=== PATIENT | male | born 1965 ===

== ENCOUNTER 2019-01-03 07:07 | Inpatient (IN) | payer OTHER ==
[~2019-01-03] VITALS: Ht 165.1 cm; Wt 66.4 kg
[2019-01-03] VITALS (12 sets, daily range): BP systolic 106–138; BP diastolic 45–81
[~2019-01-03 07:07] MED LIST: BYSTOLIC10 MG ORAL; CARBIDOPA-LEVO1 EA15 PO; FISH OIL 500 M1 EAC1 PO; PAXIL10 MG ORAL; VIT B12 PO; VIT D PO; [UNRECOGNIZED DRUG - OTHER] PO; ceFAZolin sod 1 GM in NS 55 ML IVPB ONE
[2019-01-03] MEDS ORDERED: EPINEPHrine 1mg/1ml Amp ONE (07:16)
[2019-01-03] MEDS ORDERED: Thrombin 5000 units TOPIC ONE ×2 (07:16→07:17)
[2019-01-03] MEDS ORDERED: Vancomycin 1gm vial IVPB ONE (07:16)
[2019-01-03] MEDS ORDERED: Gelfoam Size TOPIC ONE (07:16)
[2019-01-03] MEDS ORDERED: Bupivacaine 0.5% Inj 30 ml vial INJ ONE (07:17)
[2019-01-03] MEDS ORDERED: Bacitracin 50000 Units Vial ONE (07:17)
[2019-01-03] MEDS ORDERED: NS Irrig 1000ml IRRIG ONE ×2 (07:36→08:05)
[2019-01-03] MEDS ORDERED: fentaNYL 100 mcg/2 mL IV ONE (07:42)
[2019-01-03] MEDS ORDERED: Midazolam 2mg/2ml Inj ONE (07:42)
[2019-01-03] MEDS ORDERED: Lidocaine 1% MPF 10mg/ml 5ml ONE (07:42)
[2019-01-03] MEDS ORDERED: Rocuronium Bromide 50mg/5ml Inj IV ONE (07:56)
[2019-01-03] MEDS ORDERED: Succinylcholine 20mg/ml 10ml vial ONE (07:56)
[2019-01-03] MEDS ORDERED: Sterile Water Irrig 1000ml IRRIG ONE (08:30)
[2019-01-03] MEDS ORDERED: NS Irrig 1000ml ONE (08:30)
[2019-01-03] MEDS ORDERED: LR 1000ml ONE (08:30)
[2019-01-03] MEDS ORDERED: Propofol 1,000mg/ 100ml btl IV ONE (08:30)
[2019-01-03] MEDS ORDERED: Neostigmine 1mg/ml 10ml Inj ONE (08:30)
[2019-01-03] MEDS ORDERED: ePHEDrine 50mg/ml Inj ONE (08:30)
--- NOTE | 2019-01-03 08:57 | Pre-Procedure Note/Attestation ---
Pre-Procedure Note/Attestation Complete Prior to Procedure Procedure Narrative: L3-5 laminectomy Indications for Procedure Pre-Operative Diagnosis: L3-5 stenosis Attestation I attest that I discussed the nature of the procedure; its benefits; risks and complications; and alternatives (and the risks and benefits of such alternatives ), prior to the procedure, with the patient (or the patient's legal sales development representative). I attest that, if there was a reasonable possibility of needing a blood transfusion, the patient (or the patient's legal sales development representative) was given the [facility] standardized written summary, pursuant to the Frantz Sibley Blood Safety Act ([place] Health and Safety Code # 1645, as amended). I attest that I re-evaluated the patient just prior to the surgery and that there has been no change in the patient's H&P, except as documented below: Tae Brooks MD Jan 03, 2019 08:57
--- NOTE | 2019-01-03 09:32 | Anethesia Preoperative Eval ---
Anesthesia Pre-op PMH/ROS General Date of Evaluation: Jan 03, 2019 Time of Evaluation: 08:10 Anesthesiologist: Martha ASA Score: ASA 2 Mallampati Score Class I : Soft palate, uvula, fauces, pillars visible Class II: Soft palate, uvula, fauces visible Class III: Soft palate, base of uvula visible Class IV: Only hard plate visible Mallampati Classification: Class III Surgeon: Cecilia Diagnosis: Lumbar spinal stenosis Surgical Procedure: Lumbar laminotomy Anesthesia History: difficult airway - Problem intubating for colecystectomy about 10 years ago Family History: no anesthesia problems Allergies: Coded Allergies: No Known Allergies (Unverified , 01/03/19) Patient NPO?: Yes NPO Date: Jan 02, 2019 NPO Time: 2129 Past Medical History Cardiovascular: Reports: HTN - stable on meds; Denies: CAD, CO, valve dz, arrhythmia, other Pulmonary: Denies: asthma, COPD, SHARRI, other Gastrointestinal/Genitourinary: Reports: GERD - mild; Denies: CRI, ESRD, other Neurologic/Psychiatric: Reports: depression/anxiety, other - Parkinsons stable on meds; Denies: dementia, CVA, TIA Endocrine: Denies: DM, hypothyroidism, steroids, other HEENT: Denies: cataract (L), cataract (R), glaucoma, [place] (L), [place] (R), other Hematology/Immune: Denies: anemia, DVT, bleeding disorder, other Musculoskeletal/Integumentary: Denies: OA, RA, DJD, DDD, edema, other PMH Narrative: as above PSxH Narrative: Cholecystectomy Anesthesia Pre-op Phys. Exam Physician Exam Last Vital Signs Date Time Temp Pulse Resp B/P (MAP) Pulse Ox O2 Delivery O2 Flow Rate FiO2 01/03/19 07:54 Room Air 01/03/19 07:41 97.9 48 18 132/76 (94) 100 Constitutional: NAD Neurologic: CN 2-12 intact Cardiovascular: RRR, no M/R/G Respiratory: CTA Gastrointestinal: S/NT/ND Airway Exam Mallampati Score: Class III MO: limited Neck: short TMD: short Teeth: intact Dentures: no upper, no lower Anesthesia Pre-op A/P Labs see chart Studies Pre-op Studies: EKG - NSR Risk Assessment & Plan Assessment: ASA 2 Plan: GA with ETT prone position, neuromonitoring Status Change Before Surgery: No Pre-Antibiotics Drug: Ancef 2gr Given Within 1 Hr of Incision: Yes Time Given: 09:06 Antonio Thomas MD Jan 03, 2019 09:32
[2019-01-03] MEDS ORDERED: LR 1000ml 1,000 ML IVLG SCH (09:33)
[2019-01-03] MEDS ORDERED: Morphine Sulfate 10mg/ml Inj ONE (09:36)
[2019-01-03] MEDS ORDERED: Ketorolac 30mg Inj ONE (09:37)
[2019-01-03] MEDS ORDERED: Sodium Chloride 10ml vial INJ ONE (09:37)
[2019-01-03] MEDS ORDERED: Glycopyrrolate 0.2mg/ml 1ml Vial ONE (09:37)
[2019-01-03] MEDS ORDERED: Hydromorphone 0.5mg/0.5ml inj IVP PRN (09:45)
[2019-01-03] MEDS ORDERED: Ketorolac 30mg Inj IV PRN (09:45)
[2019-01-03] MEDS ORDERED: Acetaminophen (Non formulary) 100 ML IV ONE (09:45)
[2019-01-03] MEDS ORDERED: Meperidine 50mg/ml Inj(FOR RIGORS ONLY) IV PRN (09:45)
[2019-01-03] MEDS ORDERED: DiphenhydrAMINE 50mg/ml Inj IVP PRN (09:45)
[2019-01-03] MEDS ORDERED: Metoclopramide 10mg/2ml Inj IVP PRN ×2 (09:45→11:30)
--- NOTE | 2019-01-03 10:46 | NUR ---
*-* NO INSURANCE INFORMATION IN THE BAR UNABLE TO SEND CLINICALS OR REVIEWS *-*
--- NOTE | 2019-01-03 11:22 | Brief Operative Note ---
Immediate Post Operative Note Operative Note Pre-op Diagnosis: L3-5 stenosis Procedure: L3,4,5 laminectomy Post-op Diagnosis: same as pre-op Findings: consistent w/pre-op dx studies Surgeon: los Immigration Guard: Sarath sanchez Anesthesiologist: yolie Anesthesia: general Specimen: none Complications: none Condition: stable Fluids: 1L Estimated Blood Loss: minimal - 50 Drains: hemovac Implant(s) used?: No Tae Brooks MD Jan 03, 2019 11:22
[2019-01-03] MEDS ORDERED: traMADol 50mg tab ORAL PRN (11:30)
--- NOTE | 2019-01-03 11:49 | Immediate Post-Op Evaluation ---
Immediate Post-Op Evalulation Immediate Post-Op Evalulation Procedure: L3 to L5 laminotomy with decompression Date of Evaluation: Jan 03, 2019 Time of Evaluation: 11:47 IV Fluids: 1400 Blood Products: none Estimated Blood Loss: 50 Urinary Output: 200 Blood Pressure Systolic: 106 Blood Pressure Diastolic: 57 Pulse Rate: 78 Respiratory Rate: 20 O2 Sat by Pulse Oximetry: 99 Temperature (Fahrenheit): 98.7 Pain Score (1-10): 1 Nausea: No Vomiting: No Complications none Patient Status: reacts, patent, none Hydration Status: adequate Antonio Thomas MD Jan 03, 2019 11:49
--- NOTE | 2019-01-03 12:00 | Diagnostic Imaging Report ---
INDICATION: Pain, intraoperative TECHNIQUE: Intraoperative imaging Fluoroscopy time: 4 seconds Total dose: 0.97467 mGym2 Total number of images: One COMPARISON: None FINDINGS: Intraoperative image demonstrates a surgical tool posterior to the superior aspect of what is presumably the L4 vertebral body. IMPRESSION: Intraoperative imaging, as described
--- NOTE | 2019-01-03 12:45 | NUR ---
NURSE NOTES: Received patient awake, alert and oriented. Family at bedside. IV at right hand, 20 gauge, saline lock. Oriented patient to room. Belongings reconciled with surgery nurse. Bed at lowest level with 3 side rails up. Call light within reach. In no apparent distress at this time. Will continue to monitor.
[2019-01-03] MEDS ORDERED: HYDROcodone/Acetamin 5/325 tab ORAL PRN (13:00)
[2019-01-03] MEDS ORDERED: HYDROmorphone 1mg/ml Carpuject SUBQ PRN (13:00)
[2019-01-03] MEDS ORDERED: Milk of Magnesia 30ml Ud ORAL PRN (13:00)
[2019-01-03] MEDS ORDERED: HYDROcodone/Acetamin 7.5/325 tab ORAL PRN ×2 (13:00)
[2019-01-03] MEDS ORDERED: Naloxone 0.4mg/ml Inj IVP PRN (13:00)
--- NOTE | 2019-01-03 13:25 | NUR ---
CASE MANAGEMENT:REVIEW 53 YR OLD MALE HERE FOR ELECTIVE SURGERY SI: L3-5 SPINAL STENOSIS 97.9 86 15 106/57 100% ON RA IS: TO SURGERY FOR LAMINECTOMY IVF@100/HR DILAUDID SQ Q3HRS PRN : TO MED/SURG 3 EAST INTERQUAL CRITERIA MET
[2019-01-03] MEDS ORDERED: Morphine Sulfate 2mg/ml Inj(IV/IM USE ONLY) IM PRN (14:45)
[2019-01-03] MEDS ORDERED: HYDROcodone/Acetamin 10/325 tab ORAL PRN (14:45)
[2019-01-03] MEDS ORDERED: Morphine Sulfate 2mg/ml Inj(IV/IM USE ONLY) IVP PRN (14:45)
[2019-01-03] MEDS: D5 1/2NS 1,000 ML IV SCH (15:04)
[2019-01-03] MEDS: Docusate 100mg cap ORAL SCH (17:35)
[2019-01-03] MEDS: Levodopa/Carbidopa 25/100 tab ORAL SCH (17:35)
--- NOTE | 2019-01-03 19:24 | NUR ---
HAND-OFF: Report given to LUCRETIA Lucero.
--- NOTE | 2019-01-03 22:34 | NUR ---
NURSE NOTES: Patient awake in bed, alert and oriented x4. With complaint of mild pain when changing positions but didn't want to have pain medicine when RN offered. Instructed to use call light for assistance. Call light in reach. Bed in lowest and lock engaged. Will continue to monitor.
[2019-01-04] VITALS: BP 130/80
[2019-01-04] MEDS: D5 1/2NS 1,000 ML IV SCH ×2 (01:08→09:00)
--- NOTE | 2019-01-04 01:12 | NUR ---
HAND-OFF: Report given to LUCRETIA Smith.
--- NOTE | 2019-01-04 01:15 | NUR ---
NURSE NOTES: Received a report from LUCRETIA Lucero. Pt is in stable condition. AAOX4. Able to make needs known. Uses nasal cannula 2L/min. No c/o pain, but was feeling nauseous. Will give Zofran. IV site is patent and intact. Hemovac is noted on the spine. Dressings are intact on the spine. Bed in lowest position. Bed alarm is on. Call light within reach. Will continue to monitor.
[2019-01-04 03:57] VITALS: BP 129/78
--- NOTE | 2019-01-04 07:05 | NUR ---
HAND-OFF: Report given to LUCRETIA Ortiz.
--- NOTE | 2019-01-04 07:10 | NUR ---
NURSE NOTES: Receive patient in bed, awake, alert and oriented x4. Not in respiratory/cardiac distress. Patient is in mild pain on lower back but does not need pain med now stating " I do not need pain medication, I will call you when I need it." Will continue to monitor. No output from hemovac, dressing on lower back intact, no bleeding or discharge. Patient denies numbness on the legs, able to move his legs and wiggle his toes. Instructed patient how to do IS. Awaiting for PT. IV intact, no s/s of infiltration. Will continue plan of care.
[2019-01-04 08:00] VITALS: BP_SYST 112; BP_SYST 138; BP_DIAS 64; BP_DIAS 82
--- NOTE | 2019-01-04 08:40 | Orthopedic Spine Progress Note ---
Ortho Spine - Progress Note Subjective Symptoms: improved - as compared to pre-op Objective Vital Signs: Last 24 Hour Vital Signs Date Time Temp Pulse Resp B/P (MAP) Pulse Ox O2 Delivery O2 Flow Rate FiO2 01/04/19 08:00 98.9 95 19 112/64 (80) 97 01/04/19 03:57 98.2 57 19 129/78 (95) 97 01/04/19 00:00 98.3 59 18 130/80 (97) 100 01/03/19 21:00 Nasal Cannula 2.0 01/03/19 20:00 98.1 56 17 131/79 (96) 100 01/03/19 16:00 97.7 92 20 120/70 (87) 92 01/03/19 14:15 97.5 63 18 137/77 (97) 100 01/03/19 13:15 98.0 68 20 130/77 (94) 99 01/03/19 13:01 Room Air 01/03/19 12:45 98.2 73 18 128/77 (94) 100 01/03/19 12:30 97.7 78 17 134/81 100 Nasal Cannula 3 01/03/19 12:10 73 13 138/74 100 Nasal Cannula 3 01/03/19 12:00 76 23 113/45 100 Simple Mask 6 01/03/19 11:50 82 23 117/60 100 Simple Mask 6 01/03/19 11:49 78 20 99 01/03/19 11:45 89 15 122/69 100 Simple Mask 6 01/03/19 11:42 98.9 86 15 106/57 100 Simple Mask 6 I&O: Intake and Output 01/03/19 01/04/19 19:00 07:00 Intake Total 2000 ml 1340 ml Output Total 250 ml 610 ml Balance 1750 ml 730 ml Intake Oral 240 ml IV Total 2000 ml 1100 ml Output Urine Total 200 ml 610 ml Drainage Total 0 ml Estimated Blood Loss 50 ml # Voids 1 Wound: clean Drains: hemovac Neuro Status: unchanged from pre-op Assessment Procedure Performed: L3,4,5 laminectomy Plan Plan: PT, pain management, d/c drain, discharge plan Tae Brooks MD Jan 04, 2019 08:40
--- NOTE | 2019-01-04 08:45 | NUR ---
NURSE NOTES: Seen and evaluated by and new order received. Order read back and carried out. Removed Hemovac by . No signs and symptoms of bleeding. Will continue to monitor.
[2019-01-04] MEDS: Docusate 100mg cap ORAL SCH (08:58)
[2019-01-04] MEDS: Levodopa/Carbidopa 25/100 tab ORAL SCH ×2 (08:58→13:43)
[2019-01-04] MEDS ORDERED: Bystolic 2.5mg Tab ORAL SCH (09:00)
[2019-01-04] MEDS ORDERED: PARoxetine 20mg tab ORAL SCH (09:00)
--- NOTE | 2019-01-04 10:00 | NUR ---
NURSE NOTES: Spoke to PT and cleared to discharge patient and recommended raised toilet seat.
--- NOTE | 2019-01-04 10:15 | NUR ---
NURSE NOTES: RN spoke to Dr. Rasheed internal medicine for this patient to ask if patient is clear for discharge. Dr. Rasheed will be here late in the afternoon. Per Dr. Rasheed if patient is stable and feels ok,he can go home." Rn let patient and know. RN also placed a call to Dr. Luong and left a message with call back number for prescription. Awaiting for return call. Patient and will wait for the doctors. Given zofran 4mg IV due to nausea. Patient took norco earlier. No vomiting. Will continue to monitor.
--- NOTE | 2019-01-04 10:35 | NUR ---
NURSE NOTES: Dr. Luong called back, he will be in this afternoon.
--- NOTE | 2019-01-04 10:44 | NUR ---
*-* NO INSURANCE INFORMATION IN THE BAR UNABLE TO SEND CLINICALS OR REVIEWS *-*
--- NOTE | 2019-01-04 11:31 | NUR ---
NURSE NOTES: Patient is sitting in the chair complains of mild headache and neck stiffness. Patient stated that he was unable to sleep tight last night and he just walked to the bathroom with assist of his . Once he entered the room, he started to feel dizzy for a short time and he felt okay. RN checked the V/S. BP is 159/82, pulse 55, temp 98,O2sat is 98% in room air. Patient denies chest pain or shortness of breath. No neurological deficit @ this time. Noted with small amount of light pinkish drainage on patient's gown from s/p hemo vac cath removal site.No active bleeding. Cleansed with NS and applied gauze dressing.Surgical dressing is CDI. Paged Dr. Rasheed. Will continue to monitor.
--- NOTE | 2019-01-04 11:46 | NUR ---
NURSE NOTES: RN spoke to Dr. Rasheed and relayed patient's symptoms with new order to check orthostatic BP and do EKG. Patient is resting @ this time. @ the bedside. RN instructed patient and about fall risk and also reminded to call nurses if needed. Call light within reach.
[2019-01-04 12:00] VITALS: BP 141/73
--- NOTE | 2019-01-04 13:00 | NUR ---
NURSE NOTES: Rn relayed EKG result to Dr. Rasheed with no new order. Patient denies chest pain or SOB.
--- NOTE | 2019-01-04 14:00 | NUR ---
NURSE NOTES: Patient was seen by and prescription was given,patient will fill the medication from the pharmacy.
[2019-01-04] MEDS ORDERED: TransDerm Scop 1.5mg/72HR Patch TDERMAL SCH (14:30)
--- NOTE | 2019-01-04 14:30 | NUR ---
NURSE NOTES: Patient really wnats to be discharged and his asked for the discharge. They can not wait for Dr. Rasheed who is coming late in the afternoon. RN contacted Dr. Jalloh and received discharge order. Patient feels better now. Denies chest pain, SOB or dizziness @ this time. Getting ready for discharge.
--- NOTE | 2019-01-04 14:46 | 48 Hour Post Anesthesia Eval ---
Post Anesthesia Evaluation Procedure: L3 to L5 laminotomy with decompression Date of Evaluation: Jan 04, 2019 Time of Evaluation: 14:48 Blood Pressure Systolic: 141 0: 73 Pulse Rate: 54 Respiratory Rate: 18 Temperature (Fahrenheit): 98.4 O2 Sat by Pulse Oximetry: 98 Airway: patent Nausea: No Vomiting: No Pain Intensity: 3 Hydration Status: adequate Cardiopulmonary Status: Stable Mental Status/LOC: patient returned to baseline Follow-up Care/Observations: 0 Post-Anesthesia Complications: 0 Follow-up care needed: N/A Héctor Cadena MD Jan 04, 2019 14:46
[2019-01-04 14:49] VITALS: BP 141/73
[2019-01-04] MEDS ORDERED: D5 1/2NS 1000ml IV ONE (14:59)
[2019-01-04] MEDS ORDERED: NS 500ML ONE (14:59)
--- NOTE | 2019-01-04 15:00 | NUR ---
NURSE NOTES: Patient is up in wheel chair and ready for discharge. Patient complains of nausea. Dr. Luong ordered patch and IM shot for nausea. No bleeding on IM injection site. Patient really wants to go home and said " I really want to go home now, I might feel much better when I go home. I feel better now." Patient and his are aware when to seek medical attention. Discharge instruction given to patient and about pain medication, surgical site monitoring. Patient will follow up with the surgeon in 2 weeks.IV and ID were removed. No s/s of infection on IV removal site. All belongings accounted for. Staff assisted patient to car. V/S stable. Patient requested for medical records and filled out PHI form and RN placed it in the chart for medical records. Patient denies chest pain, SOB, or blurred vision.Skin intact.
--- NOTE | 2019-01-04 16:15 | Operative Note - Dictated ---
DATE OF OPERATION: 01/03/2019 SURGEON: Tae Brooks M.D. TE[employer]ER [employer] SURGEON: Marbin Crawford PA-C. ANESTHESIA: Antonio Thomas M.D. ANESTHESIA TYPE: General endotracheal anesthesia. ESTIMATED BLOOD LOSS: 50 mL. FLUIDS: 1 liter. DRAINS PLACED: Hemovac x1. PREOPERATIVE DIAGNOSIS: L3 through L5 spinal stenosis with radiculopathy. POSTOPERATIVE DIAGNOSIS: L3 through L5 spinal stenosis with radiculopathy. PROCEDURE: 1. Subtotal laminectomy L3. 2. Complete laminectomy L4. 3. Subtotal laminectomy, superior one-half L5. 4. Lysis of adhesions. 5. Use of operating microscope. 6. Neurodiagnostic monitoring. INDICATIONS: The patient is a very pleasant gentleman with fairly severe spinal stenosis maximally at L4-L5, but also at L3-L4. He does have disc herniation at both levels, which are broad-based and redundant. There is notable foraminal stenosis left greater than right. Surgical indications were noted based on failure of conservative care and ongoing radiculopathic symptoms. RISK NOTE: The patient was explained in detail risks, benefits of surgery to include, but not be limited to those of bleeding, infection, damage to nerves, vessels, tendons, anesthetic risk, allergic reaction, aspiration, possibly . The patient understood and wished to proceed. OPERATIVE PROCEDURE IN DETAIL: The patient was taken to the operating suite after positive identification was made. General endotracheal anesthesia was induced. Silva catheter was placed. The patient was turned prone onto a Nik frame. Back was prepped and draped in usual sterile fashion after all bony prominences were well padded. At this point, 2 needles were placed at what was felt to be the L3-L4 and L4-L5 levels and this was confirmed radiographically. At this point, the patient received 10 mL of Marcaine with epinephrine. Incision was made from L3 through L5. Bilateral subperiosteal dissection was carried out. Self-retaining retractors were put in place. Fluoroscopic imaging once again confirmed the appropriate levels. At this point, a laminal foraminotomy was performed on the left side at L3-L4 using standard technique of high-speed drill, Kerrison punches, and curettes. Once the decompression on the left was achieved at L3-L4, it was noted that the leading edge of L4 superiorly was still very very stenotic and the decision was made that a complete laminectomy would be required. At this point, the spinous process of L4 was completely removed with Kerrison punches, rongeurs, and pituitaries. High-speed drill was used to thin out the outer shell of the lamina and with Kerrison punch and curette, the laminectomy of L4 was completed. The dissection was then carried out superiorly and bilateral laminotomies at L3 were achieved. At this point, the leading edge of L5 was also noted to be causing marked stenosis especially in the lateral recesses and outlets. At this point, a high-speed drill was used to remove the superior one-half of L5. The ligamentum flavum and the inner shell of lamina at the superior portion of L5 was removed with Kerrison punch. Care was taken throughout this procedure to avoid any dural leaks. Once satisfied with the decompression, then attention was turned to the neural foramen at L3, L4, and L5 bilaterally and thorough neural foraminal decompressions was achieved. The neural foramen were probed. The left side was noted to have some additional scar formation due to epidural neovascularization and nerve root tethering, which was removed and mobilized using meticulous micro technique. At this junction, decision was made to close. FloSeal was applied to the lateral gutters bilaterally and adequate decompression was achieved. Meticulous hemostasis was achieved. It was decided to place a medium-sized Hemovac drain, which was placed in the subfascial region. Copious irrigation was performed. The patient then had 1 g of vancomycin powder, which was split 2/3 and 1/3, 2/3 of which was placed deep to the fascia, 1/3 of which was placed above the fascia. The fascia was repaired using #1 Vicryl [id number]. Subcutaneous closure using 2-0 Vicryl. Dermabond and sterile dressing was applied. The patient was then turned onto his back. Silva catheter was removed. Silva output was only 150 mL. Sponge and needle counts were correct. The patient was awakened, extubated, and transferred to recovery room without complications. Able to move his upper and lower extremities. Tae Brooks M.D. DR: MELINDA JOB#: [id number] CC:
--- NOTE | 2019-01-04 16:19 | NUR ---
P.T Note: late entry 929 P.T evaluation completed and tx initiated. Please refer to P.T evaluation for current functional status. Skilled P.T sevice is warranted to ensure safety and compliance with spinal/movement precautions during functional mobilities. Addendum: 01/04/19 at 1619 by NATALIE CHOI PT Amended: Links added.
--- NOTE | 2019-01-04 20:45 | Consultation ---
DATE OF CONSULTATION: 01/03/2019 CONSULTING PHYSICIAN: Robert Luong M.D. REFERRING PHYSICIAN: Tae Brooks M.D. REASON FOR CONSULTATION: Acute pain consult. Dear Dr. Tae Brooks, Thank you kindly for consulting me to evaluate and render an opinion as to how to proceed in the management of the patient's acute postoperative lumbar spine pain after his multiple level lumbar spine decompressive surgery today. I saw the patient at the bedside on your request, Dr. Brooks, to help in his postoperative pain control. The patient injured his lumbar spine in a work-related injury. He complained of significant discomfort postoperatively. I saw the patient at bedside with his and extended family. I discussed the case with the hospital pharmacist, Rita, Pharm.D. I spent over 75 minutes in consultation with an additional 30 minutes in medical record review. Multiple records were reviewed from the patient's medical chart including utilization review and surgical authorization. I had insurance carrier for [employer] insurance carrier, certifying lumbar spine surgery with hospitalization as authorized. Further record review included preop history and physical by Kwadwo Resendez M.D., on December 28, 2018, along with diagnostic testing including laboratory studies, 12-lead EKG, and chest x-ray. MRI lumbar spine exam was reviewed from September 02, 2018. I reviewed multiple records from today's date of surgery at [facility], January 03, 2019, including consent for surgical treatment, consent for anesthesia, consent for blood products, medication administration record, medication reconciliation order form, PACU record, PACU orders, anesthesia record, pre-anesthesia and post-anesthesia evaluation record, postoperative spine surgery operative report and postoperative spine surgical orders by Dr. Brooks, guidelines for prophylactic antibiotics, guidelines for DVT prophylaxis, surgical invasive procedure check list, intraoperative nursing care, and 24-hour medical/surgical flow sheet. PAST MEDICAL HISTORY: 1. Acute postoperative lumbar spine pain, status post lumbar spine decompressive surgery by Dr. Tae Brooks in December 2018. 2. Work-related injury. 3. Parkinson's. 4. Hypertension. 5. Anxiety/depression. 6. Jehovah witness. PAST SURGICAL HISTORY: Cholecystectomy around 2004. FAMILY HISTORY: Diabetes, malignancy, hypertension, and thyroid disorder. The patient is accompanied at the bedside by his , mother, and brothers. 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 He denies marijuana, tobacco, or alcohol usage. ALLERGIES: No known drug allergies. REVIEW OF SYSTEMS: Per Dr. Rasheed. MEDICATIONS: At home, Sinemet, Paxil, and Bystolic. PHYSICAL EXAMINATION: VITAL SIGNS: Age 53. Height 5 feet 5 inches, weight 149 pounds, and body-mass index 25. Vital signs, afebrile, pulse 63, respirations 18, blood pressure 127/77, and oxygen saturation 100% on supplemental oxygen. HEENT: Normocephalic and atraumatic. Nasal cannula oxygen in place. No Paredes's palsy. No Lulú syndrome. CHEST: Clear to auscultation. HEART: Regular rhythm. ABDOMEN: Soft. BACK: Lumbar spine with Hemovac drain holding suction. NEUROLOGIC: Pain by incision area with minimal paraspinal muscle spasms appreciated. Pain with log-rolling. Moving all toes x10. Detailed neurologic exam per Dr. Brooks. GENITOURINARY: Deferred. DIAGNOSTIC AND LABORATORY STUDIES: Diagnostic testing shows laboratory studies in November 2018, which shows INR 1.0 and PTT 29. Glucose 87, sodium 143, potassium 4.5, chloride 104, bicarb 27, BUN 12, creatinine 0.9, and calcium 9.5. Total protein 7.0, albumin 4.6, alkaline phosphatase 104, AST 20, ALT 15, and total bilirubin 1.0. White count 7, hematocrit 45, and platelets 231,000. Urine toxicology screen, all negative. A 12-lead EKG shows left ventricular hypertrophy, heart rate 50, on December 28, 2018. Preoperative chest x-ray shows no acute cardiopulmonary disease on December 28, 2018. MRI of lumbar spine dated September 02, 2018, shows L5-S1 with a posterior broad-based disk protrusion. IMPRESSION: 1. Acute postoperative lumbar spine pain, status post lumbar spine decompressive surgery by Dr. Tae Brooks in December 2018. 2. Work-related injury. 3. Parkinson's. 4. Hypertension. 5. Anxiety/depression. 6. Jehovah witness. TREATMENT RECOMMENDATIONS: I talked to the hospital pharmacist after examining the patient and made the following recommendations to help with his postoperative pain control. I set up 2 different doses of morphine for moderate or severe pain respectively starting with 2 mg IV and 3 mg intramuscularly. Also, we will trial on Taberg 10/325 one tablet orally every three hours p.r.n. for mild pain. I have restarted the patient on Paxil for mood stabilization. He does not appear to be anxious; however, I will hold off the class of benzodiazepines at this time. I will place him on Colace b.i.d. to help with bowel regularity and a p.r.n. dose of milk of magnesia has been ordered as a rescue laxative. I have ordered Zofran 4 mg intravenously every 4 hours p.r.n. for nausea and vomiting. Benadryl is available as an anti-itching agent. Incentive spirometer has been ordered to encourage good pulmonary toilet. We will see how the patient progresses with physical therapy training and we will monitor the output from the Hemovac drain in order to determine his discharge planning. At the time of discharge home, the patient will need a prescription for pain medications. Robert Luong M.D. DR: Harry JOB#: [id number] CC:
--- NOTE | 2019-01-04 23:00 | Progress Note ---
DATE: 01/04/2019 ACUTE PAIN MANAGEMENT PHYSICIAN PROGRESS NOTE SUBJECTIVE: I saw the patient at the bedside with the nurse, Saba. I discussed the case with the charge nurse RN, Austin, and the physical therapist, Malcolm. Early this morning, Dr. Brooks, surgery, examined the patient and was pleased with the patient's progress. The surgeon removed the Hemovac drain and cleared the patient for discharge once he was satisfactorily progressing with physical therapy training. I spoke with the physical therapist, Malcolm, who approved the patient to discharge to home. The patient still has mild intermittent nausea. The patient states that he normally gets nauseous after surgeries and hopefully these symptoms will spontaneously improve. The patient was able to drink liquids. He has not had vomiting episodes thankfully. The remains at the bedside providing excellent social support. The patient has been able to ambulate in the hallways. The lumbar spine dressing appears clean and dry. The patient did tolerate the hydrocodone this morning at a dose of 10 mg. I counseled the patient that perhaps a 5 mg dose might even be tolerated better and a prescription for 40 tablets for outpatient usage of [place] 10/325 with instructions to cut the pill in half if needed. The patient appears comfortable and is able to move in and out of bed to the chair. He has normal vital signs. At this point, I see no contraindication for discharge to home and would follow up with Dr. Brooks in the outpatient surgery clinic in 1 to 2 weeks. Robert Luong M.D. DR: Kirsty JOB#: [id number] CC:
--- NOTE | 2019-01-05 14:05 | Discharge Summary ---
Discharge Summary Hospital Course Date of Admission Jan 03, 2019 at 07:07 Date of Discharge Jan 04, 2019 at 15:00 Admitting Diagnosis severe lumbar stenosis L3 through L5 with radiculopathy Reason for Hospitalization: elective surgery HPI Romulo Amaro is a 53 year old male who was admitted on Jan 03, 2019 at 07:07 for Severe Spinal Stenosis with radiculopathy L3 through L5. Patient was admitted for elective surgery. Consultations pain specialist Dr Luong Procedures s/p 01/03/[address] Brooks 1. Subtotal laminectomy L3. 2. Complete laminectomy L4. 3. Subtotal laminectomy, superior one-half L5. 4. Lysis of adhesions. 5. Use of operating microscope. 6. Neurodiagnostic monitoring. Hospital Course status post surgery course of recovery uneventful initially IV fluids s/p perioperative antibiotics neurovascular status closely monitored, remained stable after surgery Hemovac drain, output closely monitored Hemovac was discontinued prior to discharge incision with dressing clean , dry ,and intact pain management addressed pain specialist followed; pain controlled remained hemodynamically stable ambulated with PT fall precautions maintained; safe for ambulation DVT prophylaxis provided with SCD use of incentive spirometry was encouraged while in the bed tolerated diet , IV fluids discontinued antiemetics were on board as needed voided freely bowel regimen instituted patient was stable for discharge discharge instructions provided follow up with surgeon in the office as outpatient as advised FINAL DIAGNOSES L3 through L5 spinal stenosis with radiculopathy. s/p L3,4,5 laminectomy Discharge Medications Continued Medications: Carbidopa/Levodopa/Entacapone (Onmuuqscy-Hvubhzsa-Zowl 200 Mg) 1 Each Tablet 1 EACH PO TID, TAB (This prescription has been renewed) Nebivolol Hcl (Bystolic*) 10 Mg Tablet 5 MG ORAL DAILY, TAB (This prescription has been renewed) [place]-3/Dha/Epa/Fish Oil (Fish Oil 500 Mg Softgel) 1 Each Capsule 4 EACH PO DAILY, CAP (This prescription has been renewed) Paroxetine Hcl* (Paxil*) 10 Mg Tablet 10 MG ORAL DAILY, TAB 0 Refills (This prescription has been renewed) Discharge Condition Upon Discharge: stable Discharge Disposition Patient was discharged home Discharge Instructions Discharge Instructions Special Instructions I have been assigned to complete a D/C Summary on this account. I was not involved in the patient management Kathy Olvera NP Jan 05, 2019 14:05
== END 2019-01-04 15:00 | disposition home or self-care (01) | DRG 517 ==
LOC: SDSOVERFLO 07:07 → 3E 12:39
PROC: 01NB0ZZ Release Lumbar Nerve, Open Approach (ICD-10-PCS; principal; 2019-01-03 08:30)
DX: M48.061 Spinal stenosis, lumbar region without neurogenic claudication (principal); M54.16 Radiculopathy, lumbar region; G20 Parkinson's disease; I10 Essential (primary) hypertension; F41.8 Other specified anxiety disorders
CPT/HCPCS: 72020; 76000; 87081; 93005; J2250; J2405; J2710